=== PATIENT | male | born 1985 | race Caucasian/White ===

== ENCOUNTER 2016-08-01 17:30 | Emergency (ER) | payer SELFPAY ==
[~2016-08-01] VITALS: Wt 115.5 kg
[2016-08-01] MEDS ORDERED: morphine 4 MG/ML VIAL IV STA (19:27)
[2016-08-01] MEDS ORDERED: ONDANSETRON 4 MG INJ IV STA (19:27)
[2016-08-01] MEDS ORDERED: SOD CHLORIDE 0.9% 1,000 ML IV STA (19:27)
--- NOTE | 2016-08-01 19:34 | ERD ---
ER Documentation Chief Complaint Date/Time DATE: 08/01/16 TIME: 19:30 Chief Complaint RIGHT SIDE ABD PAIN RADIATING TO BACK, NAUSEA, NO VOMITING HPI 30-year-old male presents here in emergency department for complaints of right flank pain radiating to the right side of the abdomen and right groin area started 4 days ago, patient was lifting heavy object, started to have the pain afterwards, it rest, it got worse today. Patient described the pain as sharp pain, 6/10 scale, is worse upon movement. Patient did not take any medications elevated symptoms. Patient denies any fever chills nausea or vomiting. Patient denies any diarrhea or constipation. Patient denies any direct trauma on affected area. ROS All systems reviewed and are negative except as per history of present illness. Medications Home Meds Reported Medications [none] Unknown Strength No Conflict Check 08/01/16 Allergies Allergies: Uncoded Allergies: DAYQUIL (Allergy, Mild, 08/01/16) PMhx/Soc Medical and Surgical Hx: pt denies Medical Hx, pt denies Surgical Hx History of Surgery: Yes (LAP BAND, nasal surgery) Anesthesia Reaction: No Hx Neurological Disorder: No Hx Respiratory Disorders: No Hx Cardiac Disorders: No Hx Psychiatric Problems: No Hx Miscellaneous Medical Probl: No Hx Alcohol Use: Yes (SOCIALLY) Hx Substance Use: No Hx Tobacco Use: Yes Smoking Status: Current every day smoker FmHx Family History: No coronary disease, No diabetes, No other Physical Exam Vitals Vital Signs Date Time Temp Pulse Resp B/P Pulse Ox O2 Delivery O2 Flow Rate FiO2 08/01/16 17:34 98.8 80 17 166/96 100 Physical Exam GENERAL: The patient is well developed and appropriate for usual state of health, in no apparent distress. CHEST: Clear to auscultation bilaterally. There are no rales, wheezes or rhonchi. HEART: Regular rate and rhythm. No murmurs, clicks, rubs or gallops. No S3 or S4. ABDOMEN: Soft, nontender and nondistended. Good bowel sounds. No rebound or guarding. No gross peritonitis. No gross organomegaly or masses. No Garcia sign or McBurney point tenderness. BACK: No midline or flank tenderness. EXTREMITIES: Equal pulses bilaterally. There is no peripheral clubbing, cyanosis or edema. No focal swelling or erythema. Full range of motion. Grossly neurovascularly intact. NEURO: Alert and oriented. Cranial nerves 2-12 intact. Motor strength in all 4 extremities with 5/5 strength. Sensation grossly intact. Normal speech and gait. SKIN: There is no apparent rash or petechia. The skin is warm and dry. HEMATOLOGIC AND LYMPHATIC: There is no evidence of excessive bruising or lymphedema. No gross cervical, axillary, or inguinal lymphadenopathy. Result Diagram: 08/01/16195008/01/161950 Results 24 hrs Laboratory Tests Test 08/01/16 19:50 08/01/16 19:51 Urine Bilirubin NEGATIVE Urine Clarity CLEAR Urine Color LT. YELLOW Urine Epithelial Cells FEW Urine Glucose NEGATIVE% Urine Hemoglobin TRACE Urine Ketones TRACE Urine Leukocyte Esterase NEGATIVE Urine Microscopic RBC 0-2/HPF Urine Microscopic WBC NONE SEEN/HPF Urine Nitrite NEGATIVE Urine Specific [place] >=1.030 Urine Total Protein NEGATIVE Urine Urobilinogen 0.2 E.U./dL Urine pH 6.0 Alanine Aminotransferase (ALT/SGPT) 44IU/L Albumin 4.5g/dl Albumin/Globulin Ratio 1.32 Alkaline Phosphatase 96IU/L Anion Gap 18 Aspartate Amino Transf (AST/SGOT) 23IU/L Basophils # 0.010^3/ul Basophils % 0.4% Blood Urea Nitrogen 11mg/dl Calcium Level 9.4mg/dl Carbon Dioxide Level 28mmol/L Chloride Level 102mmol/L Creatinine 0.73mg/dl Direct Bilirubin 0.00mg/dl Eosinophils # 0.110^3/ul Eosinophils % 0.6% Globulin 3.40g/dl Glucose Level 84mg/dl Hematocrit 44.2% Hemoglobin 15.0g/dl Indirect Bilirubin 0.3mg/dl Lipase 42U/L Lymphocytes # 2.910^3/ul Lymphocytes % 24.3% Mean Corpuscular Hemoglobin 29.6pg Mean Corpuscular Hemoglobin Concent 34.0g/dl Mean Corpuscular Volume 86.9fl Mean Platelet Volume 8.2fl Monocytes # 0.510^3/ul Monocytes % 4.2% Neutrophils # 8.310^3/ul Neutrophils % 70.5% Nucleated Red Blood Cells # 0.010^3/ul Nucleated Red Blood Cells % 0.0/100WBC Platelet Count 26122^3/UL Potassium Level 4.3mmol/L Red Blood Count 5.0810^6/ul Red Cell Distribution Width 13.2% Sodium Level 144mmol/L Total Bilirubin 0.3mg/dl Total Protein 7.9g/dl White Blood Count 11.710^3/ul Current Medications Medications (Trade) Dose Ordered Sig/Boy Route PRN Reason Start Time Stop Time Status Last Admin Dose Admin Sodium Chloride (NS) 1,000 ml @ 1,000 mls/hr Q1H STAT IV 08/01/16 19:27 08/01/16 20:26 08/01/16 19:46 Morphine Sulfate (morphine) 4 mg ONCE STAT IV 08/01/16 19:27 08/01/16 19:29 DC 08/01/16 19:46 Ondansetron HCl (Zofran Inj) 4 mg ONCE STAT IV 08/01/16 19:27 08/01/16 19:29 DC 08/01/16 19:46 Patient was given medication for pain here in emergency department, after treatment, patient verbalized feeling much better. Patient's pain is improved.Patient was given Zofran here in the emergency department. After treatment, patient was able to tolerate po fluids here in the emergency department without any vomiting. There is no signs and symptoms of dehydration. Normal saline IV bolus was given here in emergency department for rehydration, patient tolerated IV fluids. PROCEDURE: CT Abdomen and Pelvis without contrast. CLINICAL INDICATION: Abdominal and pelvic pain. TECHNIQUE: CT scan of the abdomen and pelvis without contrast was performed. Coronal and sagittal reformatted images were obtained from the axial source images. Images were reviewed on a high-resolution PACS workstation. Total exam DLP is 1541.90 mGy-cm. CTDIvol is 21.57 mGy. One or more of the following dose reduction techniques were used: Automated exposure control, adjustment of the mA and/or kV according to patient size, use of iterative reconstruction technique. COMPARISON: None. FINDINGS: The lung bases are normal. There is no pleural effusion. The liver is normal in size and attenuation. There is no focal hepatic lesion. The gallbladder and bile ducts are normal. There is a gastric band noted in the proximal stomach with a catheter extending to a port in the anterior abdominal wall. The spleen is normal in size. There is no focal splenic lesion. Both adrenals are normal with no enlargement or mass. The pancreas is unremarkable with no mass or evidence of pancreatitis. There is no renal mass or hydronephrosis. There is no renal calculus or ureteral calculus. The abdominal aorta is not dilated. There is no retroperitoneal lymphadenopathy or mass. There is no pelvic lymphadenopathy or mass. The bladder and distal ureters are normal. There is a metal foreign body consistent with probable jewelry in the scrotum. The periappendiceal region is unremarkable with no evidence of appendicitis. The appendix is well seen and appears normal. The bowel and mesentery are normal. There is no free fluid or free gas. The osseous structures are unremarkable with no fracture or lytic lesion. IMPRESSION: 1. Gastric band noted in the proximal stomach with a catheter extending to a port in the anterior abdominal wall. 2. Metal foreign body consistent with probable jewelry in the scrotum. 3. No urinary tract calculus or hydronephrosis. 4. Normal appendix. 5. Otherwise unremarkable study. RPTAT: QQ .Tico Proctor MD, MD Date Time Electronically viewed and signed by .Tico Proctor MD, MD on 08/01/2016 20:10 .R/ CC: HOMER MAGAÑA SENIOR VICE PRESIDENT AND CHIEF INFORMATION OFFICER Procedures/MDM Medical Decision Making: Patient's pain most likely consistent with musculoskeletal pain most likely muscle strain. There is low suspicion for abdominal emergencies at this time. Patients abdominal exam is normal at this time. Patients radiology exam does not show any abdominal emergencies at this time. There is low suspicion for appendicitis, cholecystitis, abdominal aortic aneurysms or peritonitis at this time. There is low suspicion for sepsis. Patient appears well and is hemodynamically stable. Disposition: Home. Condition: Stable Prescription Larslan, Flexeril, Valium Instructions: Patient is advised to take medications as prescribed. Patient is advised to rest, increase fluid intake and do avoid heavy lifting, take medications as prescribed. Patient is advised that if symptoms are worse, severe abdominal pain, uncontrolled vomiting, high fever, severe flank pain, worst signs and symptoms, to return to the emergency department immediately. Otherwise, patient can follow up with primary care doctor in 5-7 days. Departure Diagnosis: Primary Impression: Abdominal pain Abdominal location: right lower quadrant Qualified Code: R10.31 - Right lower quadrant abdominal pain Additional Impression: Muscle strain Condition: Stable Patient Instructions: Abdominal Pain, Groin Strain, Muscle Strain, Abdomen Additional Instructions: Patient is advised to take medications as prescribed. Patient is advised to rest , increase fluid intake and do avoid heavy lifting, take medications as prescribed. Patient is advised that if symptoms are worse, severe abdominal pain , uncontrolled vomiting, high fever, severe flank pain, worst signs and symptoms , to return to the emergency department immediately. Otherwise, patient can follow up with primary care doctor in 5-7 days. HOMER MAGAÑA NP Aug 01, 2016 19:34
[2016-08-01 19:59] LABS: ADD UMIC YES; URINE BILIRUBIN (Dip) NEGATIVE (NEGATIVE); URINE BLOOD (Dip) TRACE (NEGATIVE); URINE COLOR LT. YELLOW (YELLOW); URINE GLUCOSE (Dip) NEGATIVE (NEGATIVE); URINE KETONES (Dip) TRACE (NEGATIVE); URINE LEUKOCYTE ESTERASE (Dip) NEGATIVE (NEGATIVE); URINE NITRITE (Dip) NEGATIVE (NEGATIVE); URINE TOTAL PROTEIN (Dip) NEGATIVE (NEGATIVE); URINE UROBILINOGEN (Dip) 0.2 E.U./dL (0.1-1.0)
[2016-08-01 20:01] LABS: BASOPHILS % 0.4 % (0.0-2.0); EOSINOPHILS # 0.1 10^3/ul (0.0-0.5); EOSINOPHILS % 0.6 % (0.0-7.0); HEMATOCRIT 44.2 % (42.0-52.0); LYMPHOCYTES # 2.9 10^3/ul (0.8-2.9); LYMPHOCYTES % 24.3 % (15.0-51.0); MEAN CORPUSCULAR HEMOGLOBIN 29.6 pg (29.0-33.0); MEAN CORPUSCULAR VOLUME 86.9 fl (82.0-101.0); MEAN PLATELET VOLUME 8.2 fl (7.4-10.4); MONOCYTE # 0.5 10^3/ul (0.3-0.9); MONOCYTES % 4.2 % (0.0-11.0); NEUTROPHIL # 8.3 10^3/ul (1.6-7.5); NEUTROPHILS % 70.5 % (39.0-77.0); PLATELET COUNT 230 10^3/UL (140-440); RED BLOOD COUNT 5.08 10^6/ul (4.70-6.10); RED CELL DISTRIBUTION WIDTH 13.2 % (11.5-14.5); UNCORRECTED WBC 11.7 10^3/ul (4.8-10.8); WHITE BLOOD COUNT 11.7 10^3/ul (4.8-10.8)
[2016-08-01 20:08] LABS: ALBUMIN 4.5 g/dl (3.3-4.9)
[2016-08-01 20:09] LABS: POTASSIUM 4.3 mmol/L (3.5-5.1)
[2016-08-01 20:10] LABS: CONDITION 1
[2016-08-01 20:11] LABS: ALBUMIN/GLOBULIN RATIO 1.32; BILIRUBIN,INDIRECT 0.3 mg/dl (0-1.1); BILIRUBIN,TOTAL 0.3 mg/dl (0.2-1.3); CALCIUM 9.4 mg/dl (8.4-10.2); CREATININE 0.73 mg/dl (0.61-1.24); TOTAL PROTEIN 7.9 g/dl (6.1-8.1)
--- NOTE | 2016-08-01 20:11 | RADRPT ---
PROCEDURE: CT Abdomen and Pelvis without contrast. CLINICAL INDICATION: Abdominal and pelvic pain. TECHNIQUE: CT scan of the abdomen and pelvis without contrast was performed. Coronal and sagittal reformatted images were obtained from the axial source images. Images were reviewed on a high-resolu [employer] PACS workstation. Total exam DLP is 1541.90 mGy-cm. CTDIvol is 21.57 mGy. One or more of the following dose reduction techniques were used: Automated exposure control, adjustment of the mA and/ or kV according to patient size, use of iterative reconstruction technique. COMPARISON: None. FINDINGS: The lung bases are normal. There is no pleural effusion. The liver is normal in size and attenuation. There is no focal hepatic lesion. The gallbladder and bile ducts are normal. There is a gastric band noted in the proximal stomach wi th a catheter extending to a port in the anterior abdominal wall. The spleen is normal in size. There is no focal splenic lesion. Both adrenals are normal with no enlargement or mass. The pancreas is unremarkable with no mass or evidence of pancreatitis. There is no renal mass or hydronephrosis. There is no renal calculus or ureteral calculus. The abdominal aorta is not dilated. There is no retroperitoneal lymphadenopathy or mass. There is no pelvic lymphadenopathy or mass. The bladder and distal ureters are normal. There is a metal foreign body consistent with probable je welry in the scrotum. The periappendiceal region is unremarkable with no evidence of appendicitis. The appendix is well se en and appears normal. The bowel and mesentery are normal. There is no free fluid or free gas. The osseous structures are unremarkable with no fracture or lytic lesion. IMPRESSION: 1. Gastric band noted in the proximal stomach with a catheter extending to a port in the anterior a bdominal wall. 2. Metal foreign body consistent with probable jewelry in the scrotum. 3. No urinary tract calculus or hydronephrosis. 4. Normal appendix. 5. Otherwise unremarkable study. RPTAT: QQ .Tico Proctor MD, MD Date Time Electronically viewed and signed by .Tico Proctor MD, on 08/01/2016 20:10 .R/
[2016-08-01 20:15] LABS: URINE RBCS 0-2 /HPF (0)
[2016-08-01] MEDS ORDERED: HYDR-902 PO (20:25)
[2016-08-01] MEDS ORDERED: DIAZ-90 PO (20:25)
[2016-08-01] MEDS ORDERED: IBUP-1542 PO (20:25)
[2016-08-01 20:37] VITALS: BP 154/88; PULSE 77; RESP 17; TEMP 98.8
== END 2016-08-01 20:37 | disposition home or self-care (01) ==
LOC: FTE 17:30
DX: S39.011A Strain of muscle, fascia and tendon of abdomen, initial encounter (principal); R11.0 Nausea; F17.210 Nicotine dependence, cigarettes, uncomplicated; X50.0XXA Overexertion from strenuous movement or load, initial encounter; Y92.9 Unspecified place or not applicable
CPT/HCPCS: 74176; 80053; 81001; 83690; 85025; J2270; J2405; J7030; 36415; 81003; 96374; 96375